=== PATIENT | male | born 1990 | race American Indian/Alaskan Native ===

== ENCOUNTER 2022-01-13 20:48 | Emergency (ER) | payer SELFPAY ==
[2022-01-13 21:29] VITALS: BP 113/53
--- NOTE | 2022-01-13 22:46 | XRay Report ---
LEFT HAND 2 VIEW(S) INDICATION / CLINICAL INFORMATION: injury pain COMPARISON: None available. FINDINGS: BONES / JOINT(S): Acute mildly displaced fracture involving the distal tuft long finger distal phalan x. No significant arthritis. SOFT TISSUES: No significant abnormality. ADDITIONAL FINDINGS: None. IMPRESSION: 1. Mildly displaced fracture involving terminal tuft long finger distal phalanx Signer Name: King Mays MD Signed: 01/13/2022 10:41 PM Workstation Name: [id number]
[2022-01-13] MEDS ORDERED: HYDROcodone/ACETAMINOPHEN 5-325 MG TAB PO ONE (23:40)
[2022-01-13] MEDS ORDERED: TETANUS,DIPH,PERTUSS(ACELL) VACCINE 0.5 ML SYRINGE IM ONE (23:40)
[2022-01-13] MEDS ORDERED: AMOXICILLIN/K CLAV 875/125MG TAB PO ONE (23:41)
--- NOTE | 2022-01-13 23:53 | Emergency Department Report ---
ED General Adult HPI - General Chief complaint: Animal Bite Stated complaint: LEFT HAND INJURY FROM DOG FIGHT Time Seen by Provider: 01/13/22 23:39 Source: patient Mode of arrival: Ambulatory Limitations: No Limitations - History of Present Illness Initial comments: Patient 31-year-old male who presents for laceration to left distal middle finger. Patient states he was attempting to break up his dogs from fighting and 1 dog snapped puncturing his left distal middle finger nail.. Now with puncture wound bleeding was controlled by direct pressure self applied prior to arrival in the ED. Last tetanus shot 3 years ago. There is no CMS damage. Puncture wound through the nailbed. There are no other injuries. CMS remains intact. Pain is 5/10 described as aching and sharp. - Related Data Previous Rx's Medication Instructions Recorded Last Taken Type Amoxicillin/K Clav Tab [Augmentin 1 tab PO BID 7 Days #14 tab 01/14/22 Unknown Rx 875 mg] Bacitracin Zinc Oint [Antibiotic 1 applicatio TP BID 7 Days #1 tube 01/14/22 Unknown Rx Oint] HYDROcodone/APAP 5-325 [Hubert 1 each PO Q6HR PRN #12 tablet 01/14/22 Unknown Rx 5-325 mg TAB] Allergies Allergy/AdvReac Type Severity Reaction Status Date / Time No Known Allergies Allergy Unverified 01/13/22 21:25 ED Review of Systems ROS: Stated complaint: LEFT HAND INJURY FROM DOG FIGHT Other details as noted in HPI Constitutional: denies: chills, fever Eyes: denies: eye pain, eye discharge, vision change ENT: denies: ear pain, throat pain Respiratory: denies: cough, shortness of breath, wheezing Cardiovascular: denies: chest pain, palpitations Endocrine: no symptoms reported Gastrointestinal: denies: abdominal pain, nausea, diarrhea Genitourinary: denies: urgency, dysuria Musculoskeletal: other (Left middle finger approximately) Skin: other. denies: rash, lesions Neurological: denies: headache, weakness, paresthesias Psychiatric: denies: anxiety, depression Hematological/Lymphatic: denies: easy bleeding, easy bruising ED Past Medical Hx - Medications Home Medications: Home Medications Medication Instructions Recorded Confirmed Last Taken Type Amoxicillin/K Clav Tab [Augmentin 1 tab PO BID 7 Days #14 tab 01/14/22 Unknown Rx 875 mg] Bacitracin Zinc Oint [Antibiotic 1 applicatio TP BID 7 Days #1 tube 01/14/22 Unknown Rx Oint] HYDROcodone/APAP 5-325 [Hubert 1 each PO Q6HR PRN #12 tablet 01/14/22 Unknown Rx 5-325 mg TAB] ED Physical Exam - General Limitations: No Limitations General appearance: alert, in no apparent distress - Head Head exam: Present: normocephalic, normal inspection - Eye Eye exam: Present: EOMI Pupils: Present: normal accommodation - ENT ENT exam: Present: mucous membranes moist - Neck Neck exam: Present: normal inspection, full ROM. Absent: tenderness - Respiratory Respiratory exam: Present: normal lung sounds bilaterally. Absent: respiratory distress, wheezes - Cardiovascular Cardiovascular Exam: Present: regular rate, normal rhythm, normal heart sounds. Absent: systolic murmur, diastolic murmur, rubs, gallop - GI/Abdominal GI/Abdominal exam: Present: soft, normal bowel sounds - Rectal Rectal exam: Present: deferred - Extremities Exam Extremities exam: Present: normal inspection, full ROM, tenderness, normal capillary refill - Expanded Upper Extremity Exam Left Hand Wrist exam: Present: full ROM, tenderness, erythema, other (Puncture wound through nail bed). Absent: subungual hematoma Neuro motor exam: Present: wrist extension intact, thumb opposition intact, thumb IP flexion intact, thumb adduction intact, fingers 2-5 abduction intact Neurosensory exam: Present: radial nerve intact Vascular: Present: normal capillary refill - Back Exam Back exam: Present: normal inspection, full ROM. Absent: tenderness - Neurological Exam Neurological exam: Present: alert, oriented X3, CN II-XII intact, reflexes normal. Absent: motor sensory deficit - Expanded Neurological Exam Expanded Patient oriented to: Present: person, place, time Sensory exam: Upper Extremity Light Touch: Normal, Upper Extremity Pin Prick: Normal, Upper Extremity Temperature: Normal, UE 2 Point Discrimination: Normal Motor strength exam: RUE: 5, LUE: 5 DTR: bicep (R): 1+, bicep (L): 1+, tricep (R): 1+, tricep (L): 1+ Best Eye Response ([place]): (4) open spontaneously Best Motor Response ([place]): (6) obeys commands Best Verbal Response ([place]): (5) oriented [place] Total: 15 - Psychiatric Psychiatric exam: Present: normal affect, normal mood - Skin Skin exam: Present: warm, dry, normal color, other (Puncture wound does still middle finger tip). Absent: rash ED Course Vital Signs 01/13/22 21:27 Temperature 98.2 F Pulse Rate 68 Respiratory 16 Rate Blood Pressure 113/53 O2 Sat by Pulse 96 Oximetry - Reevaluation(s) Reevaluation #1: Wound care with Betadine dressing to the left fingertip. FIBER WORKER remains intact less than 3 seconds. Wound less than 1 cm patient declined to discuss finger and nail removal. However FIBER WORKER is less than 3 seconds nailbed is intact. CMS is intact patient given wound care instructions. Verbalized understanding of same. 01/13/22 23:56 ED Medical Decision Making - Radiology Data Radiology results: report reviewed, image reviewed XR foot 2V LT INDICATION / CLINICAL INFORMATION: foot pain stepped no nail foreign body COMPARISON: None available. FINDINGS: BONES / JOINT(S): No acute fracture or subluxation. Lisfranc interval is maintained. No significant arthritis. SOFT TISSUES: No focal soft tissue abnormality is identified. There is no soft tissue gas or radiopaque foreign body. ADDITIONAL FINDINGS: None. IMPRESSION: No acute findings in the left foot. No radiopaque foreign body or acute fracture. Signer Name: Janessa Akhtar MD Signed: 01/13/2022 10:38 PM Workstation Name: [id number] Transcribed By: FRANCISCA Dictated By: JANESSA AKHTAR MD Electronically Authenticated By: JANESSA AKHTAR MD Signed Date/Time: 01/13/222237 DD/ 36 TD/TT: - Medical Decision Making This is a dog bite to left posterior distal middle finger x-ray demonstrates mild tuft fracture. Wound less than 1 cm wound irrigated with 100 cc sterile saline. Patient given first dose antibiotic in ED. Tetanus shot is up-to-date. Betadine dressing applied. Patient will follow-up with orthopedic surgery in 2 days for wound check. And evaluation of tuft fracture. Patient verbalized agreement and understanding of discharge plan. Sterile dressings intact all bl eeding is controlled patient DC'd in stable condition at this time. Critical care attestation.: If time is entered above; I have spent that time in minutes in the direct care of this critically ill patient, excluding procedure time. ED Disposition Clinical Impression: Dog bite of fingernail Qualifiers: Encounter type: initial encounter Qualified Code(s): S61.359A - Open bite of unspecified finger with damage to nail, initial encounter; W54.0XXA - Bitten by dog, initial encounter Disposition: HOME / SELF CARE / HOMELESS Is pt being admited?: No Does the pt Need Aspirin: No Condition: Stable Instructions: Animal Bite, Adult, Lece-[id number]-Yove Additional Instructions: Take medications as prescribed, wound care as directed. Follow-up with your doctor in 2 to 3 days for wound check. Follow-up with orthopedics as directed. Return to emergency department should symptoms worsen. Prescriptions: Bacitracin Zinc Oint [Antibiotic Oint] 1 applicatio TP BID 7 Days #1 tube Amoxicillin/K Clav Tab [Augmentin 875 mg] 1 tab PO BID 7 Days #14 tab HYDROcodone/APAP 5-325 [Hubert 5-325 mg TAB] 1 each PO Q6HR PRN #12 tablet PRN Reason: Pain Referrals: ASHLY AMATO MD [Staff Physician] - 3-5 Days Forms: Work/School Release Form(ED) Time of Disposition: 00:03
== END 2022-01-14 01:11 | disposition home or self-care (01) ==
LOC: ED 20:48
DX: S61.353A Open bite of left middle finger with damage to nail, initial encounter (principal); W54.0XXA Bitten by dog, initial encounter; Y93.89 Activity, other specified; Y92.89 Other specified places as the place of occurrence of the external cause; Y99.8 Other external cause status
CPT/HCPCS: 90471; 90715; 99283